=== PATIENT | female | born 1980 | race Caucasian/White ===

== ENCOUNTER 2021-05-29 06:28 | Emergency (ER) | payer OTHER ==
[~2021-05-29 06:28] MED LIST: ADDERALL 5 MG TA5 MG PO; CARAFATE1 GM PO; COMPAZINE5 MG PO; EFFEXOR XR150 MG PO; FAMCICLOVIR250 MG PO; INDERAL XL80 MG PO; KEPPRA XR500 MG PO; KETOROLAC TROME10 MG PO; NEURONTIN300 MG PO; NEXIUM40 MG PO; NORCO 5-325 TA1 EAC1 PO; ONDANSETRON HCL4 MG PO; PHENERGAN25 M1 PO; REMERON30 MG PO; SYNTHROID100 MCG PO; VITAMIN B122500 MCG PO; VITAMIN D350 MC4 PO; XANAX XR3 MG PO
[2021-05-29 07:03] LABS: BASOPHIL 0.5 % (0-2); EOSINOPHIL 3.3 % (0-5); HCT 45.6 % (37.0-47.0); HGB 15.1 g/dl (12.5-16.0); LYMPHOCYTE 36.6 % (15-48); MCH 30.4 pg (25.0-31.0); MCHC 33.1 g/dL (32.0-36.0); MCV 91.8 fL (78.0-100.0); MONOCYTE 5.8 % (0-12); MPV 9.6 fL (6.0-9.5); NEUTROPHIL 53.4 % (41-80); NRBC 0; PLT 217 K/uL (150-400); RBC 4.97 M/uL (4.20-5.40); RDW 13.1 % (11.5-14.0); WBC 8.4 K/uL (4.0-10.5)
[2021-05-29 07:17] LABS: ALBUMIN 3.6 g/dL (3.4-5.0); ALKALINE PHOSHATASE 67 U/L (46-116); ALT 15 U/L (14-59); AST 11 U/L (15-37); BILIRUBIN - TOTAL 0.3 mg/dL (0.2-1.0); BUN 13 mg/dL (7-18); BUN/CREAT RATIO (CALC) 17.3 RATIO; CHLORIDE 103 mmol/L (98-107); CO2 (BICARBONATE) 27 mmol/L (21-32); CREATININE 0.75 mg/dL (0.51-0.95); GLOBULIN (CALCULATION) 3.1 g/dL; GLUCOSE 112 mg/dL (74-106); POTASSIUM 3.4 mmol/L (3.5-5.1); TOTAL PROTEIN 6.7 g/dL (6.4-8.2)
[2021-05-29 07:33] LABS: CORONAVIRUS 2019 SARS-COV-2 NEGATIVE (NEGATIVE); INFLUENZA A NAA NEGATIVE (NEGATIVE)
== END 2021-05-29 09:15 | disposition home or self-care (01) ==
LOC: FER 06:28
PROVIDERS: Emergency Medicine
DX: J06.9 Acute upper respiratory infection, unspecified (principal); M94.0 Chondrocostal junction syndrome [Tietze]; F17.210 Nicotine dependence, cigarettes, uncomplicated; Z20.822 Contact with and (suspected) exposure to COVID-19; Z88.0 Allergy status to penicillin; Z88.5 Allergy status to narcotic agent; Z88.8 Allergy status to other drugs, medicaments and biological substances
CPT/HCPCS: 36415; 71045; 80053; 84484; 85025; U0002